=== PATIENT | male | born 1960 | race Caucasian/White ===

== ENCOUNTER 2016-11-04 08:35 | Emergency (ER) | payer BC ==
[2016-11-04 08:48] VITALS: BP 146/79
--- NOTE | 2016-11-04 09:54 | UC ---
Jeevan Hernandez SooYoung, scribed for [facility] on 11/04/16 at 0857 . Abdominal Pain Male HPI - HPI Summary HPI Summary: NOTE: Afebrile. Pulse 82. Pulse ox 95. 5 out of 10 LLQ abd discomfort. Non-drinker, former smoker. PSHx: 08/29/2012 Cholecystectomy. Visit hx otherwise noncontributory. Pt is taking Simvastatin, Ranitidine and Aspirin. IN ROOM NOTE: A 56 y/o M presents to [facility] with c/o abd pain onset 3 to 4 days ago. Non- radiating, dull pain. Denies fever, dysuria, hematuria, bowel changes, rectal bleeding. He notes the pain has worsened over the past few days but has not changed. Aggravating factor: full bladder, deep breaths. Alleviating factor: Sitting or laying position, urinating. Pt is able to sleep at night. He states it doesn't feel like his past UTIs. Pert PMHx: UTI, neg kidney stones, diverticulitis. Negative colonoscopy in the past few months. 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 He says he's eating normally. PCP is Dr. Dias. NURSE'S NOTE: pt c/o a tender area to lt lower abd/upper groin area. pt states the pain is worse with a full bladder. [ End ] - History of Current Complaint Chief Complaint: UCAbdominalPain Stated Complaint: ABD PAIN Hx Obtained From: Patient Onset/Duration: Lasting Days, Still Present Severity Currently: Moderate Pain Intensity: 5 Pain Scale Used: 0-10 Numeric Location: Discrete At: LLQ Radiates: No Character: Dull Aggravating Factor(s):: Deep Breaths Alleviating Factor(s): Position Associated Signs And Symptoms: Positive: Negative - Allergies/Home Medications Allergies/Adverse Reactions: Allergies Allergy/AdvReac Type Severity Reaction Status Date / Time Clindamycin Allergy Severe STOMACH Verified 08/21/16 20:15 PAIN PMH/Surg Hx/FS Hx/Imm Hx Previously Healthy: No - Pos: SLEEP APNEA, GERD, WPW Endocrine History Of: Reports: Dyslipidemia Denies: Diabetes, Thyroid Disease, Hyperthyroidism, Hypothyroidism Cardiovascular History Of: Reports: Cardiac Disorders - WPW, ablation 1999 Denies: Hypertension, Pacemaker/ICD, Myocardial Infarction, Congestive Heart Failure, Atrial Fibrillation, Deep Vein Thrombosis, Bleeding Disorders Respiratory History Of: Denies: COPD, Asthma, Bronchitis, Pneumonia, Pulmonary Embolism GI/ History Of: Reports: Gastroesophageal Reflux Denies: Ulcer, Gastrointestinal Bleed, Gall Bladder Disease, Kidney Stones, Diverticulitis, Renal Disease, Urosepsis Neurological History Of: Denies: TIA, CVA, Dementia, Seizures, Migraine Psychological History Of: Denies: Anxiety, Depression, Bipolar Disorder, Schizophrenia, Post Traumatic Stress Disorder Cancer History Of: Denies: Lung Cancer, Colorectal Cancer, Breast Cancer, Prostate Cancer, Cervical Cancer Other History Of: Negative For: HIV, Hepatitis B, Hepatitis C, Anticoagulant Therapy - Surgical History Surgical History: Yes Surgery Procedure, Year, and Place: TONSILECTOMY [place]. [address] [facility] [place]. RIGHT SHOULDER, 2013, [facility] [place]. L meniscus surgery - Family History Known Family History: Positive: Cardiac Disease, Hypertension - father, Other - pos: [place] sister Negative: Diabetes - Social History Occupation: Employed Full-time Lives: With Family Alcohol Use: None Substance Use Type: None Smoking Status (MU): Former Smoker Review of Systems Constitutional: Negative Gastrointestinal: Abdominal Pain All Other Systems Reviewed And Are Negative: Yes Physical Exam Triage Information Reviewed: Yes Appearance: Well-Appearing, No Pain Distress, Well-Nourished Vital Signs: Initial Vital Signs Temp 97.3 F 11/04/16 08:45 Pulse 82 11/04/16 08:45 Resp 18 11/04/16 08:45 BP 146/79 11/04/16 08:45 Pulse Ox 95 11/04/16 08:45 Vital Signs Reviewed: Yes Eyes: Positive: Conjunctiva Clear ENT: Positive: Hearing grossly normal, Pharynx normal, TMs normal. Negative: Muffled/hoarse voice Neck: Positive: Supple, No Lymphadenopathy Respiratory: Positive: Chest non-tender, Lungs clear, Normal breath sounds, No respiratory distress Cardiovascular: Positive: RRR, No Murmur Abdomen Description: Positive: No Organomegaly, Soft, Other: - NO TENDERNESS IN RUQ, REFERRED PAIN IN RLQ TO LLQ. SIGNIFICANT DISCOMFORT WITH PALPATATION AND PERCUSSION OF LLQ. NO EVIDENT HERNIA. NO TESTICULAR PAIN OR ABNORMALITY. FEMORAL PULSES WNL.. Negative: Peritoneal Signs Bowel Sounds: Positive: Present Musculoskeletal: Positive: Strength Intact, Other: - CORRALES Neurological: Positive: Alert Psychological: Positive: Age Appropriate Behavior Skin: Negative: rashes Abd Pain Male Course/Dx - Course Course Of Treatment: MDM: UA 1+ PROTEIN, NEGATIVE WBC, NEGATIVE NITRITE. Discussed with pt the possibility of diverticulitis and that 25% of these cases can have complications, and the importance of initial dx. Pt understands and agrees, has decided to drive rather than take ambulance to ED. Pt vital signs are stable. - Differential Dx/Clinical Impression Differential Diagnosis/HQI/PQRI: Other - abd pain unclear etiology, kidney stone , diverticulitis, cystitis, constipation. Provider Diagnoses: abd pain unclear etiology, possible diverticulitis. - Physician Notification/Consults Discussed Patient Care With: Gabino Jeffers, charge nurse in ED Time Discussed With Above Provider: 09:43 Instructed by Provider To: MD Will See In ED Discharge - Discharge Plan Condition: Stable Disposition: HOME Patient Education Materials: Diverticulitis (ED) Referrals: Leonid Dias MD [Primary Care Provider] - Additional Instructions: WE DISCUSSED: GO TO ED RIGHT NOW. YOU MAY HAVE DIVERTICULITIS. THEY CAN FURTHER EVALUATE YOUR CONDITION. The documentation as recorded by the Jeevan garcia SooYoung accurately reflects the service I personally performed and the decisions made by me, Ander Peñaloza MD.
== END 2016-11-04 09:58 | disposition home or self-care (01) ==
LOC: UCEAST 08:35
DX: R10.32 Left lower quadrant pain (principal); Z88.1 Allergy status to other antibiotic agents; Z90.49 Acquired absence of other specified parts of digestive tract; I45.6 Pre-excitation syndrome; Z87.891 Personal history of nicotine dependence
CPT/HCPCS: 81003; 99212; G0463

== ENCOUNTER 2016-11-04 10:12 | Emergency (ER) | payer BC ==
[2016-11-04] MEDS ORDERED: NS 0.9% 1000 ML* 1,000 ML IV ONE (11:38)
[2016-11-04 11:48] LABS: Hematocrit 52 % (42-52); Hemoglobin 17.2 g/dl (14.0-18.0); Mean Corpuscular HGB Conc 33 g/dl (31-36); Mean Corpuscular Hemoglobin 29 pg (27-31); Mean Corpuscular Volume 87 fL (80-94); Mean Platelet Volume 9 um3 (7.4-10.4); Red Blood Count 5.97 10^6/ul (4.0-5.4); Red Cell Distribution Width 15 % (10.5-15); White Blood Count 9.4 10^3/ul (3.5-10.8)
[2016-11-04 11:50] LABS: Urine Bilirubin Negative (Negative); Urine Glucose Negative (Negative); Urine Nitrite Negative (Negative)
[2016-11-04 11:59] LABS: BUN/Creatinine Ratio 15.3 (8-20); C Reactive Protein 72.94 mg/L (< 5.00); Calcium 9.7 mg/dL (8.6-10.3); EGFR African American 59.1 (>60); EGFR Non-African American 45.9 (>60); Globulin 3.5 g/dL (2-4); Potassium 4.2 mmol/L (3.5-5.0); Total Bilirubin 1.2 mg/dL (0.2-1.0); Total Protein 7.5 g/dL (6.4-8.9)
[2016-11-04] MEDS ORDERED: Iodixanol* (CONTRAST) 320 MG/ML 100 ML SDV IV ONE (13:51)
--- NOTE | 2016-11-04 14:42 | RAD ---
INDICATION: Abdominal pain LEFT lower quadrant for 3 days. COMPARISON: November 11, 2010 RIGHT upper quadrant ultrasound. TECHNIQUE: Multidetector CT images were obtained from the lung bases to the ischial tuberosities with 141 mL Visipaque 320 IV and oral contrast. Multiplanar reformation. REPORT: Unremarkable visualized inferior thorax. Post cholecystectomy. Negative for biliary dilatation. Unremarkable liver, pancreas, spleen. Negative for CT abnormality of the upper GI, small bowel, or appendix visualized ascending cephalad posterior to the cecum. Moderate colonic diverticulosis most confluent at the sigmoid colon. Inflamed diverticulum along the mesenteric margin of the proximal sigmoid colon with mild perienteric inflammatory change. Negative for perienteric abscess or free air. Negative for ascites. Negative for significant hernias. Normal adrenal glands. Symmetric nephrograms and pyelograms. 1.9 cm relative hypodense cortical lesion upper pole LEFT kidney is denser than typical for a simple renal cyst. Bilateral small foci of renal cortical scarring. Negative for obstructive uropathy. Unremarkable ureters. Largely decompressed urinary bladder. Coarse calcifications at the prostate. Symmetric seminal vesicles. Negative for lymphadenopathy. Mild calcific plaque of normal diameter abdominal aorta and iliac arteries. Physiologic distention of the IVC. Lumbar sacral spine degenerative spondylosis and facet joint osteoarthritis. Mild bilateral hip joint osteoarthritis. No suspicious osseous lesions evident. IMPRESSION: 1. Acute sigmoid diverticulitis without perienteric abscess or resulting bowel obstruction. Interval follow-up after therapy including screening for colon carcinoma if not performed within the routine screening interval suggested. 2. Incidental 1.9 cm cortical lesion at the upper pole of the LEFT kidney for which nonemergent ultrasound is suggested to differentiate between a solid lesion and a hyperdense cyst.
[2016-11-04] MEDS ORDERED: metroNIDAZOLE TAB* 250 MG PO ONE (14:57)
[2016-11-04] MEDS ORDERED: Ciprofloxacin TAB* 500 MG PO ONE (14:57)
--- NOTE | 2016-11-04 15:10 | ED ---
Kristin Hernandez Rebecca, scribed for Jay Jay Dubon MD on 11/04/16 at 1028 . Abdominal Pain/Male - HPI Summary HPI Summary: Pt is 56 y/o M referred by [facility] to r/o diverticulitis who presents to ED c/o abd pain. Pain began suddenly 4 days ago and has been intermittent since onset. Pain is currently 0/10 and at its worst, 5/10. Pain is discrete to the LLQ without radiation and characterized as sharp. Sx aggravated and alleviated by nothing. Denies N/V/D, constipation, fever, chills. Last Bm was this morning. No PMHx diverticulitis or diverticulosis. Last colonoscopy was 3 months ago. - History of Current Complaint Chief Complaint: EDAbdPain Stated Complaint: LOWER LT ABD PAIN Time Seen by Provider: 11/04/16 10:21 Hx Obtained From: Patient Onset/Duration: Sudden Onset, Lasting Days - 4 days ago, Still Present Timing: Intermittent Severity Initially: Moderate Severity Currently: None Pain Intensity: 0 Pain Scale Used: 0-10 Numeric Location: Discrete At: LLQ Radiates: No Character: Sharp Aggravating Factor(s): Nothing Alleviating Factor(s): Nothing Associated Signs And Symptoms: Positive: Negative. Negative: Fever, Constipation, Nausea, Vomiting, Diarrhea - Allergies/Home Medications Allergies/Adverse Reactions: Allergies Allergy/AdvReac Type Severity Reaction Status Date / Time Clindamycin Allergy Severe STOMACH Verified 11/04/16 10:16 PAIN PMH/Surg Hx/FS Hx/Imm Hx Endocrine/Hematology History: Denies: Hx Anticoagulant Therapy, Hx Diabetes, Hx Sickle Cell Disease, Hx Thyroid Disease Cardiovascular History: Reports: Other Cardiovascular Problems/Disorders - 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 Denies: Hx Angina, Hx Congestive Heart Failure, Hx Deep Vein Thrombosis, Hx Hypertension, Hx Myocardial Infarction, Hx Pacemaker/ICD, Hx Valvular Heart Disease Respiratory History: Reports: Hx Sleep Apnea - INST TO BRING C PAP MACHINE Denies: Hx Asthma, Hx Chronic Obstructive Pulmonary Disease (COPD), Hx Lung Cancer, Hx Pneumonia, Hx Pulmonary Embolism GI History: Denies: Hx Gall Bladder Disease, Hx Gastrointestinal Bleed, Hx Ulcer, Hx Urosepsis, Other GI Disorders History: Denies: Hx Kidney Stones, Hx Renal Disease Musculoskeletal History: Denies: Other Musculoskeletal History Sensory History: Reports: Hx Contacts or Glasses - GLASSES INST GIVEN Denies: Hx Hearing Aid Opthamlomology History: Reports: Hx Contacts or Glasses - GLASSES INST GIVEN Neurological History: Denies: Hx Dementia, Hx Migraine, Hx Seizures, Hx Transient Ischemic Attacks (TIA), Other Neuro Impairments/Disorders Psychiatric History: Denies: Hx Anxiety, Hx Depression, Hx Panic Disorder, Hx Schizophrenia, Hx Bipolar Disorder - Surgical History Surgery Procedure, Year, and Place: [place]SILECTOMY [place]. 2013 [facility] [place]. RIGHT SHOULDER, 2013, [facility]. L meniscus surgery Hx Anesthesia Reactions: No Infectious Disease History: No Infectious Disease History: Denies: History Other Infectious Disease, Traveled Outside the [place] in Last 30 Days - Family History Known Family History: Positive: Cardiac Disease, Hypertension - father, Other - pos: [place] sister Negative: Diabetes - Social History Alcohol Use: None Substance Use Type: Reports: None Smoking Status (MU): Former Smoker Review of Systems Negative: Fever Positive: Abdominal Pain, Other - Denies constipation. Negative: Vomiting, Diarrhea, Nausea All Other Systems Reviewed And Are Negative: Yes Physical Exam - Summary Physical Exam Summary: Obese male lying comfortably in stretcher in no distresss. Abd soft, distended, positive LLQ tenderness with no rebound or guarding Triage Information Reviewed: Yes Vital Signs On Initial Exam: Initial Vitals Temp Pulse Resp BP Pulse Ox 97.8 F 73 16 129/81 97 11/04/16 10:16 11/04/16 10:16 11/04/16 10:16 11/04/16 10:16 11/04/16 10:16 Vital Signs Reviewed: Yes Appearance: Positive: Well-Appearing, No Pain Distress, Obese Skin: Positive: Warm, Skin Color Reflects Adequate Perfusion, Dry Head/Face: Positive: Normal Head/Face Inspection Eyes: Positive: EOMI, MELIA ENT: Positive: Normal ENT inspection Neck: Positive: Supple, Nontender Respiratory/Lung Sounds: Positive: Clear to Auscultation, Breath Sounds Present Cardiovascular: Positive: RRR, Pulses are Symmetrical in both Upper and Lower Extremities Abdomen Description: Positive: Soft, Other: - No rebound. Negative: Nontender - Tenderness in the LLQ, Guarding Bowel Sounds: Positive: Present Musculoskeletal: Positive: Normal, Strength/ROM Intact Neurological: Positive: Normal, Sensory/Motor Intact, Alert, Oriented to Person Place, Time Psychiatric: Positive: Normal, Affect/Mood Appropriate Diagnostics - Vital Signs Vital Signs Temp Pulse Resp BP Pulse Ox 11/04/16 10:16 97.8 F 73 16 129/81 97 - Laboratory Lab Results: Lab Results 11/04/16 11/04/16 11/04/16 Range/Units 10:40 10:40 10:40 WBC 9.4 (3.5-10.8) 10^3/ul RBC 5.97 H (4.0-5.4) 10^6/ul Hgb 17.2 (14.0-18.0) g/dl Hct 52 (42-52) % MCV 87 (80-94) fL MCH 29 (27-31) pg MCHC 33 (31-36) g/dl RDW 15 (10.5-15) % Plt Count 211 (150-450) 10^3/ul MPV 9 (7.4-10.4) um3 Neut % (Auto) 65.3 (38-83) % Lymph % (Auto) 18.1 L (25-47) % Miller % (Auto) 10.8 H (1-9) % Eos % (Auto) 4.8 (0-6) % Baso % (Auto) 1.0 (0-2) % Absolute Neuts (auto) 6.1 (1.5-7.7) 10^3/ul Absolute Lymphs (auto) 1.7 (1.0-4.8) 10^3/ul Absolute Monos (auto) 1.0 H (0-0.8) 10^3/ul Absolute Eos (auto) 0.4 (0-0.6) 10^3/ul Absolute Basos (auto) 0.1 (0-0.2) 10^3/ul Absolute Nucleated RBC 0 10^3/ul Nucleated RBC % 0 Sodium 135 (133-145) mmol/L Potassium 4.2 (3.5-5.0) mmol/L Chloride 103 (101-111) mmol/L Carbon Dioxide 26 (22-32) mmol/L Anion Gap 6 (2-11) mmol/L BUN 24 (6-24) mg/dL Creatinine 1.57 H (0.67-1.17) mg/dL Est GFR ( Amer) 59.1 (>60) Est GFR (Non-Af Amer) 45.9 (>60) BUN/Creatinine Ratio 15.3 (8-20) Glucose 103 H (70-100) mg/dL Lactic Acid (0.5-2.0) mmol/L Calcium 9.7 (8.6-10.3) mg/dL Total Bilirubin 1.20 H (0.2-1.0) mg/dL AST 19 (13-39) U/L ALT 25 (7-52) U/L Alkaline Phosphatase 54 (34-104) U/L Troponin I 0.00 (<0.04) ng/mL C-Reactive Protein 72.94 H (< 5.00) mg/L Total Protein 7.5 (6.4-8.9) g/dL Albumin 4.0 (3.2-5.2) g/dL Globulin 3.5 (2-4) g/dL Albumin/Globulin Ratio 1.1 (1-3) Amylase 23 L (29-103) U/L Lipase 25 (11.0-82.0) U/L Urine Color Yellow Urine Appearance Clear Urine pH 5.0 (5-9) Ur Specific [place] 1.015 (1.010-1.030) Urine Protein Negative (Negative) Urine Ketones Negative (Negative) Urine Blood Negative (Negative) Urine Nitrate Negative (Negative) Urine Bilirubin Negative (Negative) Urine Urobilinogen Negative (Negative) Ur Leukocyte Esterase Negative (Negative) Urine Glucose Negative (Negative) 11/04/16 Range/Units 10:40 WBC (3.5-10.8) 10^3/ul RBC (4.0-5.4) 10^6/ul Hgb (14.0-18.0) g/dl Hct (42-52) % MCV (80-94) fL MCH (27-31) pg MCHC (31-36) g/dl RDW (10.5-15) % Plt Count (150-450) 10^3/ul MPV (7.4-10.4) um3 Neut % (Auto) (38-83) % Lymph % (Auto) (25-47) % Miller % (Auto) (1-9) % Eos % (Auto) (0-6) % Baso % (Auto) (0-2) % Absolute Neuts (auto) (1.5-7.7) 10^3/ul Absolute Lymphs (auto) (1.0-4.8) 10^3/ul Absolute Monos (auto) (0-0.8) 10^3/ul Absolute Eos (auto) (0-0.6) 10^3/ul Absolute Basos (auto) (0-0.2) 10^3/ul Absolute Nucleated RBC 10^3/ul Nucleated RBC % Sodium (133-145) mmol/L Potassium (3.5-5.0) mmol/L Chloride (101-111) mmol/L Carbon Dioxide (22-32) mmol/L Anion Gap (2-11) mmol/L BUN (6-24) mg/dL Creatinine (0.67-1.17) mg/dL Est GFR ( Amer) (>60) Est GFR (Non-Af Amer) (>60) BUN/Creatinine Ratio (8-20) Glucose (70-100) mg/dL Lactic Acid 0.8 (0.5-2.0) mmol/L Calcium (8.6-10.3) mg/dL Total Bilirubin (0.2-1.0) mg/dL AST (13-39) U/L ALT (7-52) U/L Alkaline Phosphatase (34-104) U/L Troponin I (<0.04) ng/mL C-Reactive Protein (< 5.00) mg/L Total Protein (6.4-8.9) g/dL Albumin (3.2-5.2) g/dL Globulin (2-4) g/dL Albumin/Globulin Ratio (1-3) Amylase (29-103) U/L Lipase (11.0-82.0) U/L Urine Color Urine Appearance Urine pH (5-9) Ur Specific [place] (1.010-1.030) Urine Protein (Negative) Urine Ketones (Negative) Urine Blood (Negative) Urine Nitrate (Negative) Urine Bilirubin (Negative) Urine Urobilinogen (Negative) Ur Leukocyte Esterase (Negative) Urine Glucose (Negative) Result Diagrams: 11/04/16 10:40 11/04/16 10:40 Lab Statement: Any lab studies that have been ordered have been reviewed, and results considered in the medical decision making process. - CT Abd/Pel CT CT Interpretation Completed By: Radiologist - 1. Acute sigmoid diverticulitis without perienteric abscess or resulting bowel obstruction. Interval follow-up after therapy including screening for colon carcinoma if not performed within the routine screening interval suggested. 2. Incidental 1.9 cm cortical lesion at the upper pole of the LEFT kidney for which nonemergent ultrasound is suggested to differentiate between a solid lesion and a hyperdense cyst. Abdominal Pain Fem Course/Dx - Course Assessment/Plan: Pt is 56 y/o M referred by [facility] to r/o diverticulitis who presents to ED c/o abd pain. Pain began suddenly 4 days ago and has been intermittent since onset. Pain is currently 0/10 and at its worst, 5/10. Pain is discrete to the LLQ without radiation and characterized as sharp. Sx aggravated and alleviated by nothing. Denies N/V/D, constipation, fever, chills. Last Bm was this morning. No PMHx diverticulitis or diverticulosis. Last colonoscopy was 3 months ago. Blood work within normal limits except for creatinine of 1.5, glucose of 103, CRP of 7294. Urinalysis within normal limits. Abd/Pel CT shows the pt has acute sigmoid diverticulitis without perienteric abscess and no bowel obstruction. An incidental finding of 1.9 cm lesion of the upper pole of the L kidney which needs a nonemergent US. In the ED course, pt was given IV fluids, Ciprofloxacin and Flagyl to treat diverticulitis. I disclosed the findings of CT and the incidental finding of the lesion in the kidney and the need to follow up with PCP. Pt understands and agrees. Pt did not require any pain meds. He is AxOx3 and hemodynamically stable. I discussed all the findings and test results with the patient. Patient was instructed to return to the emergency room immediately if any of the symptoms return or worsens. Plan of care was discussed with the patient and understands and agrees. All questions were answered at patient satisfaction. There were no further complaints or concerns. Lung exam before discharge: CTA B /L. Good air exchange. No wheezing or crackles heard. CVS: S1 and S2 present. No murmurs appreciated. Patient is alert and oriented x 3. Patient is hemodynamically stable. 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 ) The documentation as recorded by the Kristin garcia Rebecca accurately reflects the service I personally performed and the decisions made by Jagdish velasquez Walter, MD.
[2016-11-04 15:20] VITALS: BP 119/75
== END 2016-11-04 15:20 | disposition home or self-care (01) ==
LOC: ED 10:12
DX: K57.92 Diverticulitis of intestine, part unspecified, without perforation or abscess without bleeding (principal); K59.00 Constipation, unspecified; N28.9 Disorder of kidney and ureter, unspecified; R10.9 Unspecified abdominal pain; R10.32 Left lower quadrant pain
CPT/HCPCS: 36415; 74177; 80053; 81003; 82150; 83605; 83690; 84484; 85025; 86140; 99283; A9270-GY; Q9967

== ENCOUNTER 2017-10-19 17:36 | Emergency (ER) | payer MEDICAID ==
--- NOTE | 2017-10-19 19:26 | UC ---
Knee Pain HPI - HPI Summary HPI Summary: 57 yo WM s/p left knee replacement on 09/17/2017, s/p staple removal on 10/01/17 had some residual skin infection/cellulitis on left tibia after staple removal, was placed on Keflex x1 week by his orthopedist then on doxycycline by his PCP 8 days ago, still c/o draining from the healing wound. Sx improved but still c/ o left tibial pain and drainage. - History of Current Complaint Chief Complaint: UCLowerExtremity Stated Complaint: KNEE COMPLAINT Time Seen by Provider: 10/19/17 18:47 Hx Obtained From: Patient Hx From Patient Unobtainable Due To: Other Severity Initially: Moderate Severity Currently: Moderate Pain Intensity: 8 Character: Sharp, Dull, Aching, Throbbing Aggravating Factor(s): Weight Bearing Alleviating Factor(s): Rest - elevation - Allergies/Home Medications Allergies/Adverse Reactions: Allergies Allergy/AdvReac Type Severity Reaction Status Date / Time clindamycin Allergy Stomach Verified 10/19/17 18:19 Cramps Home Medications: Home Medications Aspirin 325 mg PO DAILY 10/19/17 [History Confirmed 10/19/17] DOXYcycline CAP(*) [DOXYcycline 100MG CAP(*)] 100 mg PO BID 10/19/17 [History Confirmed 10/19/17] Ibuprofen 800 mg PO Q6H PRN 10/19/17 [History Confirmed 10/19/17] oxyCODONE TAB* [Roxycodone TAB 5 mg*] 5 mg PO Q6H PRN 10/19/17 [History Confirmed 10/19/17] PMH/Surg Hx/FS Hx/Imm Hx - Additional Past Medical History Additional PMH: left knee replacement 09/17/2017 Other History Of: Negative For: HIV, Hepatitis B, Hepatitis C, Anticoagulant Therapy - Surgical History Surgical History: Yes Surgery Procedure, Year, and Place: 1969' TONSILECTOMY [place]. 2012 [facility]. RIGHT SHOULDER, 2013, [facility]. L meniscus surgery. L knee replacement - Family History Known Family History: Positive: Cardiac Disease, Hypertension - father, Other - pos: [place] sister Negative: Diabetes - Social History Alcohol Use: None Substance Use Type: None Smoking Status (MU): Former Smoker Review of Systems Constitutional: Negative Skin: Other - SEE HPI Eyes: Negative ENT: Negative Respiratory: Negative Cardiovascular: Negative Gastrointestinal: Negative Genitourinary: Negative Motor: Negative Neurovascular: Negative Musculoskeletal: Other: - LLE pain Neurological: Negative Psychological: Negative Is Patient Immunocompromised?: No All Other Systems Reviewed And Are Negative: Yes Physical Exam Triage Information Reviewed: Yes Appearance: No Pain Distress Vital Signs: Initial Vital Signs Temp 36.9 C 10/19/17 18:14 Pulse 96 10/19/17 18:14 Resp 16 10/19/17 18:14 BP 131/89 10/19/17 18:14 Pulse Ox 97 10/19/17 18:14 Eye Exam: Normal ENT Exam: Normal Dental Exam: Normal Neck exam: Normal Neck: Positive: 1 Respiratory Exam: Normal Cardiovascular Exam: Normal Abdominal Exam: Normal Musculoskeletal: Positive: Other: - midline post-surgical scar over left knee from lower thigh to mid tibia, C/D/I Neurological Exam: Normal Psychological Exam: Normal Skin: Positive: significant lesion(s) - left mid tibial open wound size 1x1 cm draining purulent d/c, very faint mild area of cellulitis surrounding wound, mild TTP Knee Pain Course/Dx - Course Course Of Treatment: XR of left knee and left tibia neg for hardware abnormalities, positive for soft-tissue edema c/w cellulitis on left tibia. Pt is already taking doxycycline since 10/11/17, and has f/u appt with his ortho on 10/23, so advised to get re-eval by his orthopedist. Rocephin 1g IM x1 administered in UC - Differential Dx/Diagnosis Provider Diagnoses: LLE wound infection. Wound check Discharge - Discharge Plan Condition: Stable Disposition: HOME Patient Education Materials: Cellulitis (ED) Referrals: Leonid Dias MD [Primary Care Provider] - Additional Instructions: follow up with your orthopedics doctor jerome.
--- NOTE | 2017-10-19 19:28 | RAD ---
INDICATION: Total knee replacement COMPARISON: October 09, 2015 TECHNIQUE: AP, lateral, sunrise views were obtained. FINDINGS: There is left knee arthroplasty. Both femoral and tibial components appear well seated. The knee articular is normally. There is no joint effusion. There is soft tissue edema IMPRESSION: LEFT KNEE ARTHROPLASTY. NO EVIDENCE OF HARDWARE FAILURE. SOFT TISSUE EDEMA.
--- NOTE | 2017-10-19 19:29 | RAD ---
INDICATION: Cellulitis COMPARISON: None TECHNIQUE: AP and lateral views were obtained. FINDINGS: There are no acute bony findings. There is left knee arthroplasty. There is evidence of hardware removal of the proximal tibia. There are soft tissue calcifications.. IMPRESSION: NO ACUTE BONY FINDINGS. LEFT KNEE ARTHROPLASTY. SOFT TISSUE EDEMA IS CONSISTENT WITH CELLULITIS.
[2017-10-19] MEDS ORDERED: cefTRIAXone VIAL(*) 1,000 MG VIAL IM ONE (20:01)
[2017-10-19] MEDS ORDERED: Lidocaine 1% MPF* 2 ML VIAL INJ ONE (20:04)
[2017-10-19 20:10] VITALS: BP 122/82
== END 2017-10-19 20:31 | disposition home or self-care (01) ==
LOC: UCEAST 17:36
DX: T81.4XXA Infection following a procedure, initial encounter (principal); L08.9 Local infection of the skin and subcutaneous tissue, unspecified; Z96.652 Presence of left artificial knee joint; Z88.1 Allergy status to other antibiotic agents; Z87.891 Personal history of nicotine dependence
CPT/HCPCS: 96372; 99212; G0463; J0696

== ENCOUNTER 2018-06-23 09:37 | Emergency (ER) | payer OTHER ==
[2018-06-23 10:07] VITALS: BP 127/60
--- NOTE | 2018-06-23 10:39 | UC ---
Knee Pain HPI - HPI Summary HPI Summary: Slipped and fell on L knee several hours ago, and flexed the knee as he fell. He took ibuprofen 800mg just before coming to . Had L knee replacement in August and is concerned that it was out of alignment. - History of Current Complaint Chief Complaint: UCLowerExtremity Stated Complaint: KNEE INJURY Time Seen by Provider: 06/23/18 09:59 Hx Obtained From: Patient Onset/Duration: Sudden Onset, Lasting Hours Severity Initially: Moderate Severity Currently: Moderate Pain Intensity: 4 Character: Dull Aggravating Factor(s): Movement, Weight Bearing Alleviating Factor(s): Rest, Position Associated Signs And Symptoms: Positive: Negative Able to Bear Weight: Yes - Risk Factors Septic Arthritis Risk Factor: Negative Gout Risk Factor: Negative - Allergies/Home Medications Allergies/Adverse Reactions: Allergies Allergy/AdvReac Type Severity Reaction Status Date / Time clindamycin Allergy Stomach Verified 06/23/18 10:07 Cramps Home Medications: Home Medications Testosterone [Androgel] 20.25 mg TD DAILY 06/23/18 [History Confirmed 06/23/18] PMH/Surg Hx/FS Hx/Imm Hx Previously Healthy: Yes Endocrine History: Dyslipidemia GI/ History: Gastroesophageal Reflux Other History Of: Negative For: HIV, Hepatitis B, Hepatitis C, Anticoagulant Therapy - Surgical History Surgical History: Yes Surgery Procedure, Year, and Place: [place] [address] [facility] [place] [facility] [place]iscus [place]. L knee replacement - Family History Known Family History: Positive: Cardiac Disease, Hypertension - father, Other - pos: [place] sister Negative: Diabetes - Social History Alcohol Use: None Substance Use Type: None Smoking Status (MU): Former Smoker Review of Systems Musculoskeletal: Arthralgia All Other Systems Reviewed And Are Negative: Yes Physical Exam - Summary Physical Exam Summary: Knee with minimal soft tissue swelling, no erythema, small knee effusion, varus/ valgus negative, ADT negative, no popliteal mass Triage Information Reviewed: Yes Appearance: Well-Appearing, No Pain Distress, Obese Vital Signs: Initial Vital Signs Temp 97.3 F 06/23/18 10:03 Pulse 61 06/23/18 10:03 Resp 16 06/23/18 10:03 BP 127/60 06/23/18 10:03 Pulse Ox 98 06/23/18 10:03 Vital Signs Reviewed: Yes Eyes: Positive: Conjunctiva Clear ENT: Positive: Hearing grossly normal Neck: Positive: Supple, Nontender Respiratory: Positive: Chest non-tender, Lungs clear, Normal breath sounds, No respiratory distress Cardiovascular: Positive: RRR, No Murmur, Pulses Normal, Brisk Capillary Refill Abdomen Description: Positive: Nontender Musculoskeletal: Positive: Strength Intact, ROM Intact, No Edema Knee Pain Course/Dx - Course Course Of Treatment: left knee xray was negative for fracture with presence of small knee effusion. Continue RICE and ibuprofen as needed, MICHAEL wrap on knee and range of motion as tolerated. F/u with PCP in 1 week. - Differential Dx/Diagnosis Provider Diagnoses: Knee sprain Discharge - Sign-Out/Discharge Documenting (check all that apply): Patient Departure All imaging exams completed and their final reports reviewed: Yes - Discharge Plan Condition: Stable Disposition: HOME Patient Education Materials: Ibuprofen (By mouth), Knee Sprain (ED) Referrals: Leonid Dias MD [Primary Care Provider] - - Billing Disposition and Condition Condition: STABLE Disposition: Home
--- NOTE | 2018-06-23 10:51 | RAD ---
INDICATION: Left knee injury. TECHNIQUE: 2 views of the left knee were obtained. FINDINGS: The patient is status post total left knee replacement surgery. The bones and prostheses are in normal alignment. There is a joint effusion present. No fracture is seen. IMPRESSION: 1. JOINT EFFUSION, NO FRACTURE IS SEEN. 2. STATUS POST TOTAL LEFT KNEE REPLACEMENT SURGERY.
== END 2018-06-23 11:05 | disposition home or self-care (01) ==
LOC: UCEAST 09:37
DX: S83.92XA Sprain of unspecified site of left knee, initial encounter (principal); Z96.652 Presence of left artificial knee joint; Z88.1 Allergy status to other antibiotic agents; Z87.891 Personal history of nicotine dependence; W01.0XXA Fall on same level from slipping, tripping and stumbling without subsequent striking against object, initial encounter; Y92.9 Unspecified place or not applicable
CPT/HCPCS: 99212; G0463

== ENCOUNTER 2018-09-18 21:36 | Emergency (ER) | payer BC, OTHER ==
--- NOTE | 2018-09-18 21:52 | UC ---
Respiratory Complaint HPI - HPI Summary HPI Summary: The patient is a 58-year-old male with the onset of fever chills cough nasal congestion and sore throat that started yesterday. States that he has burning pain in his chest when he coughs. He denies any shortness of breath. He has a history of bronchitis. Mild headache and myalgias. States his is currently being treated for bronchitis. - History of Current Complaint Stated Complaint: CHEST CONGESTION Time Seen by Provider: 09/18/18 21:44 Hx Obtained From: Patient Onset/Duration: Gradual Onset, Lasting Hours Timing: Constant Severity Initially: Mild Severity Currently: Moderate Pain Intensity: 8 Pain Scale Used: 0-10 Numeric Character: Cough: Productive Aggravating Factors: Deep Breaths Alleviating Factors: Nothing Associated Signs And Symptoms: Positive: Fever, Chills. Negative: Dyspnea, Pleuritic Chest Pain, Wheezing, Hemoptysis, Dizziness, Calf Pain, Calf Swelling , Edema, URI - Allergies/Home Medications Allergies/Adverse Reactions: Allergies Allergy/AdvReac Type Severity Reaction Status Date / Time clindamycin Allergy Stomach Verified 09/18/18 21:54 Cramps PMH/Surg Hx/FS Hx/Imm Hx Previously Healthy: Yes - mana Endocrine History: Dyslipidemia Respiratory History: Bronchitis, Pneumonia GI/ History: Gastroesophageal Reflux Other History Of: Negative For: HIV, Hepatitis B, Hepatitis C, Anticoagulant Therapy - Surgical History Surgical History: Yes Surgery Procedure, Year, and Place: [place]OMY [place]. [place] [facility] [facility] [place], [facility] [place] L meniscus surgery. L knee replacement - Family History Known Family History: Positive: Cardiac Disease, Hypertension - father, Other - pos: [place] sister Negative: Diabetes - Social History Alcohol Use: None Substance Use Type: None Smoking Status (MU): Former Smoker Review of Systems All Other Systems Reviewed And Are Negative: Yes Constitutional: Positive: Fever, Chills, Fatigue Skin: Positive: Negative Eyes: Positive: Negative ENT: Positive: Negative Respiratory: Positive: Cough Cardiovascular: Positive: Negative Gastrointestinal: Positive: Negative Genitourinary: Positive: Negative Motor: Positive: Negative Neurovascular: Positive: Negative Musculoskeletal: Positive: Negative Neurological: Positive: Negative Psychological: Positive: Negative Physical Exam Triage Information Reviewed: Yes Appearance: Well-Appearing, No Pain Distress Vital Signs Reviewed: Yes Eyes: Positive: Conjunctiva Clear ENT: Positive: Hearing grossly normal, Pharynx normal, Nasal congestion, Nasal drainage, Uvula midline. Negative: Tonsillar swelling, Tonsillar exudate, Trismus, Muffled voice, Hoarse voice, Sinus tenderness Dental: Negative: Abscess @ Neck: Positive: Supple, Nontender, No Lymphadenopathy Respiratory: Positive: Lungs clear, Normal breath sounds, No respiratory distress, No accessory muscle use, Other: - bronchospastic cough Cardiovascular: Positive: RRR, No Murmur Musculoskeletal: Positive: ROM Intact, No Edema Neurological: Positive: Alert Psychological Exam: Normal Skin Exam: Normal UC Diagnostic Evaluation - Laboratory O2 Sat by Pulse Oximetry: 95 - low normal/not hypoxic Diagnostic Studies Comment: influenza (-) Respiratory Course/Dx - Differential Dx/Diagnosis Provider Diagnosis: Bronchitis Discharge - Sign-Out/Discharge Documenting (check all that apply): Patient Departure All imaging exams completed and their final reports reviewed: No Studies - Discharge Plan Condition: Stable Disposition: HOME Prescriptions: Azithromycin TAB* [Zithromax TAB*] 250 mg PO DAILY #4 tab Patient Education Materials: Acute Bronchitis (ED) Forms: *Work Release Referrals: Leonid Dias MD [Primary Care Provider] - If Needed Additional Instructions: rest fluids tylenol or advil if needed robitussin or mucinex recheck in 48 hours if still febrile - Billing Disposition and Condition Condition: STABLE Disposition: Home
[2018-09-18 21:54] VITALS: BP 114/72
[2018-09-18] MEDS ORDERED: Ibuprofen TAB* 600 MG PO ONE (22:01)
[2018-09-18 22:24] LABS: Influenza A Molecular NEGATIVE (Negative); Influenza B Molecular NEGATIVE (Negative)
[2018-09-18] MEDS ORDERED: Azithromycin TAB* 250 MG PO ONE (22:26)
[2018-09-18] MEDS ORDERED: Azithromycin TAB* 250 MG ONE (22:33)
== END 2018-09-18 22:37 | disposition home or self-care (01) ==
LOC: UCEAST 21:36
DX: J40 Bronchitis, not specified as acute or chronic (principal); Z88.1 Allergy status to other antibiotic agents; Z87.891 Personal history of nicotine dependence
CPT/HCPCS: 99212; A9270-GY; G0463

== ENCOUNTER 2019-01-27 06:35 | Emergency (ER) | payer BC ==
--- NOTE | 2019-01-27 06:47 | ED ---
Abdominal Pain/Male - HPI Summary HPI Summary: Pt. is a 58 y.o male who presents to the ER for lower abd. pain that started yesterday. Pt. notes pain has increased through the night and presents for evaluation. No associated sxs are CP, SOB, V/D/C, dysuria, hematuria, fever, chills. Hx of high cholesterol. Hx of cholecystectomy. Pt. notes hx of diverticulitis a few years ago and pain is similar. Sxs are moderate in severity. No current modifying factors. Pain /. - History of Current Complaint Chief Complaint: EDAbdPain Stated Complaint: ABD PAIN PER PT Time Seen by Provider: 01/27/19 06:45 Hx Obtained From: Patient Pain Intensity: 10 - Allergies/Home Medications Allergies/Adverse Reactions: Allergies Allergy/AdvReac Type Severity Reaction Status Date / Time clindamycin Allergy Stomach Verified 01/27/19 06:45 Cramps PMH/Surg Hx/FS Hx/Imm Hx Previously Healthy: Yes Endocrine/Hematology History: Denies: Hx Anticoagulant Therapy, Hx Diabetes, Hx Sickle Cell Disease, Hx Thyroid Disease Cardiovascular History: Reports: Other Cardiovascular Problems/Disorders - 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 Denies: Hx Angina, Hx Congestive Heart Failure, Hx Deep Vein Thrombosis, Hx Hypertension, Hx Myocardial Infarction, Hx Pacemaker/ICD, Hx Valvular Heart Disease Respiratory History: Reports: Hx Sleep Apnea - INST TO BRING C PAP MACHINE Denies: Hx Asthma, Hx Chronic Obstructive Pulmonary Disease (COPD), Hx Lung Cancer, Hx Pneumonia, Hx Pulmonary Embolism GI History: Denies: Hx Gall Bladder Disease, Hx Gastrointestinal Bleed, Hx Ulcer, Hx Urosepsis, Other GI Disorders History: Denies: Hx Kidney Stones, Hx Renal Disease Musculoskeletal History: Denies: Other Musculoskeletal History Sensory History: Reports: Hx Contacts or Glasses - GLASSES INST GIVEN Denies: Hx Hearing Aid Opthamlomology History: Reports: Hx Contacts or Glasses - GLASSES INST GIVEN Neurological History: Denies: Hx Dementia, Hx Migraine, Hx Seizures, Hx Transient Ischemic Attacks (TIA), Other Neuro Impairments/Disorders Psychiatric History: Denies: Hx Anxiety, Hx Depression, Hx Panic Disorder, Hx Schizophrenia, Hx Bipolar Disorder - Surgical History Surgery Procedure, Year, and Place[place] [facility] [place] [facility] [place]. L knee replacement Hx Anesthesia Reactions: No Infectious Disease History: No Infectious Disease History: Denies: History Other Infectious Disease, Traveled Outside the [place] in Last 30 Days - Family History Known Family History: Positive: Cardiac Disease, Hypertension - father, Other - pos: [place] sister Negative: Diabetes - Social History Occupation: Employed Full-time Lives: With Family Alcohol Use: None Substance Use Type: Reports: None Smoking Status (MU): Former Smoker Review of Systems Constitutional: Negative Negative: Fever, Chills Cardiovascular: Negative Negative: Palpitations, Chest Pain Respiratory: Negative Negative: Shortness Of Breath, Cough Positive: Abdominal Pain. Negative: Vomiting, Diarrhea, Nausea Genitourinary: Negative Negative: dysuria, hematuria Neurological: Negative All Other Systems Reviewed And Are Negative: Yes Physical Exam Triage Information Reviewed: Yes Vital Signs On Initial Exam: Initial Vitals Temp Pulse Resp BP Pulse Ox 97.0 F 85 18 141/68 98 01/27/19 06:43 01/27/19 06:43 01/27/19 06:43 01/27/19 06:43 01/27/19 06:43 Vital Signs Reviewed: Yes Appearance: Positive: Pain Distress - Pt. sitting on bed in NAD. Appears uncomfortable but nontoxic. Skin: Positive: Warm, Dry Head/Face: Positive: Normal Head/Face Inspection Eyes: Positive: Normal, EOMI, MELIA Neck: Positive: Supple Respiratory/Lung Sounds: Positive: Clear to Auscultation, Breath Sounds Present Cardiovascular: Positive: Normal, RRR Abdomen Description: Positive: Other: - Morbidly obese. Abd. is soft with marked tenderness and guarding to the LLQ. No rigidity. Neurological: Positive: Normal, CN Intact II-III Psychiatric: Positive: Affect/Mood Appropriate Diagnostics - Vital Signs Vital Signs Temp Pulse Resp BP Pulse Ox 01/27/19 06:43 97.0 F 85 18 141/68 98 - Laboratory Result Diagrams: 01/27/19 07:39 01/27/19 07:10 Lab Statement: Any lab studies that have been ordered have been reviewed, and results considered in the medical decision making process. Abdominal Pain Male Course/Dx - Course Course Of Treatment: Pt. presenting with lower abd. pain. Afebrile with stable VS. Pt. rating pain 8/10. Suspcet diverticulitis based on exam and hx. Pt. started on IV fluids and pain medication. Pending labs and CT scan. ECG done at 0654 shows a sinus rhythm of 83 bpm, normal axis, no STEMI, similar to prior tracing. CT abd/pelvis per radiology: IMPRESSION: 1. CT findings are consistent with sigmoid diverticulitis without evidence of macro. perforation or drainable abscess. 2. Additional chronic, degenerative and iatrogenic findings described in the body the. report. On re-exam pt. resting comfortably. Results discussed. Tolerating PO fluids. Will tx with cipro and flagyl. Clear liquid diet. Discussed pain control and pt. would like to take tylenol or motrin. Close f.u with PCP. To return to ER for increased pain, vomiting, fever, or if concerned. Pt. understands and agrees with plan. - Diagnoses Differential Diagnosis/HQI/PQRI: Appendicitis, Bowel Obstruction, Constipation, Diverticulitis, Ischemic Bowel, Urinary Tract Infection Provider Diagnoses: Diverticulitis Discharge - Sign-Out/Discharge Documenting (check all that apply): Patient Departure Patient Received Moderate/Deep Sedation with Procedure: No - Discharge Plan Condition: Improved Disposition: HOME Prescriptions: Ciprofloxacin TAB* [Cipro 500 MG TAB*] 500 mg PO BID #20 tab metroNIDAZOLE [Flagyl 500 MG TAB] 500 mg PO TID #30 tab Patient Education Materials: Diverticulitis (ED) Referrals: Leonid Dias MD [Primary Care Provider] - Additional Instructions: Follow up with PCP in 2-3 days Take medication as directed Clear liquid diet x 3-5 days Tylenol or Motrin for pain as directed Return to ER for increased pain, vomiting, fever, or if concerned - Billing Disposition and Condition Condition: IMPROVED Disposition: Home
[2019-01-27] MEDS ORDERED: NS 0.9% 1000 ML** 1,000 ML IV ONE (06:52)
[2019-01-27] MEDS ORDERED: Ondansetron INJ* 2 MG/ML VIAL IV ONE (06:52)
[2019-01-27] MEDS ORDERED: Morphine 4 MG/ML VIAL (1 ml) 4 MG/ML VIAL IV ONE (06:52)
[2019-01-27 07:48] LABS: ABS Eosinophils 0.4 10^3/ul (0-0.6); ABS Lymphocytes 1.2 10^3/ul (1.0-4.8); ABS Monocytes 0.8 10^3/ul (0-0.8); ABS Neutrophils 7.2 10^3/ul (1.5-7.7); Eosinophil % 4.2 %; Hematocrit 48 % (42-52); Lymphocyte % 12.1 %; Mean Corpuscular HGB Conc 33 g/dL (31-36); Mean Corpuscular Hemoglobin 28 pg (27-31); Mean Corpuscular Volume 85 fL (80-94); Mean Platelet Volume 8.1 fL (7.4-10.4); Platelet Count 206 10^3/uL (150-450); Red Blood Count 5.63 10^6 /uL (4.18-5.48); Red Cell Distribution Width 15 % (10.5-15); White Blood Count 9.6 10^3/uL (3.5-10.8)
[2019-01-27 08:14] LABS: Calcium 9.8 mg/dL (8.6-10.3); Potassium 4.8 mmol/L (3.5-5.0); Total Bilirubin 1.1 mg/dL (0.2-1.0)
[2019-01-27 08:21] LABS: Albumin/Globulin Ratio 1.5 (1-3); BUN/Creatinine Ratio 17.6 (8-20); C Reactive Protein 19.81 mg/L (<8.01); EGFR Non-African American 51.2 (>60); Globulin 2.7 g/dL (2-4); Total Protein 6.7 g/dL (6.4-8.9)
[2019-01-27] MEDS ORDERED: Iodixanol* (CONTRAST) 320 MG/ML 100 ML SDV IV ONE (08:25)
[2019-01-27] MEDS ORDERED: Ciprofloxacin TAB* 500 MG PO ONE (09:18)
[2019-01-27] MEDS ORDERED: metroNIDAZOLE * 500 MG TABLET PO ONE (09:20)
[2019-01-27 09:21] LABS: Urine Appearance Clear; Urine Bilirubin Negative (Negative); Urine Blood Negative (Negative); Urine Color Yellow; Urine Glucose Negative (Negative); Urine Ketones Negative (Negative); Urine Nitrite Negative (Negative); Urine Protein Negative (Negative); Urine Specific Gravity 1.012 (1.010-1.030); Urine Urobilinogen Negative (Negative)
[2019-01-27 09:43] VITALS: BP 110/65
== END 2019-01-27 09:43 | disposition home or self-care (01) ==
LOC: ED 06:35
DX: K57.92 Diverticulitis of intestine, part unspecified, without perforation or abscess without bleeding (principal); Z87.891 Personal history of nicotine dependence
CPT/HCPCS: 36415; 74177; 80053; 81003; 83690; 84484; 85025; 86140; 93005; 96374; 96375; 99283; A9270-GY; J2270; J2405; Q9967

== ENCOUNTER 2019-01-30 18:01 | Emergency (ER) | payer BC ==
--- NOTE | 2019-01-30 18:08 | UC ---
Shoulder Pain HPI - HPI Summary HPI Summary: 58 yo right hand dominant male presents with LEFT shoulder pain. 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 Over the last 2 weeks has noticed increasing discomfort in his left shoulder with lifting and movement. Today he was using a hammer in his left hand and when he struck downwards - had increased pain in his shoulder. This concerned him. He has pain when lifting his arm above his chest. Denies numbness or tingling. No specific injury. No neck pain. - History of Current Complaint Stated Complaint: L SHOULDER PAIN Time Seen by Provider: 01/30/19 18:05 Hx Obtained From: Patient Severity Initially: Moderate Severity Currently: Severe Pain Intensity: 9 Pain Scale Used: 0-10 Numeric - Allergies/Home Medications Allergies/Adverse Reactions: Allergies Allergy/AdvReac Type Severity Reaction Status Date / Time clindamycin Allergy Stomach Verified 01/27/19 06:45 Cramps PMH/Surg Hx/FS Hx/Imm Hx - Additional Past Medical History Additional PMH: Diverticulosis Endocrine History: Dyslipidemia GI/ History: Gastroesophageal Reflux Other History Of: Negative For: HIV, Hepatitis B, Hepatitis C, Anticoagulant Therapy - Surgical History Surgical History: Yes Surgery Procedure, Year, and Place: [place]OMY [place]. 2013 [facility] [place], 2013, [facility] [place]. L meniscus surgery. L knee replacement - Family History Known Family History: Positive: Cardiac Disease, Hypertension - father, Other - pos: [place] sister Negative: Diabetes - Social History Occupation: Works From/At Home Lives: With Family Alcohol Use: None Substance Use Type: None Smoking Status (MU): Former Smoker Review of Systems All Other Systems Reviewed And Are Negative: Yes Constitutional: Positive: Negative Skin: Positive: Negative Respiratory: Positive: Negative Cardiovascular: Positive: Negative Neurovascular: Positive: Negative Musculoskeletal: Positive: Other: - Left shoulder pain Neurological: Positive: Negative Psychological: Positive: Negative Physical Exam - Summary Physical Exam Summary: GENERAL: NAD. WDWN. No pain distress. SKIN: No rashes, sores, lesions, or open wounds. CHEST: No accessory muscle use. Breathing comfortably and in no distress. CV: Pulses intact radial and ulnar. Cap refill <2seconds MSK: LEFT SHOULDER: Flexion to 90deg before pain stops him. Passive ROM to ~ 120deg before pain. Strength 5/5. No edema or obvious bony deformities. Positive empty can, neer, and hawkin's test. NEURO: Alert. Sensations intact C4-T1 B/L UEs PSYCH: Age appropriate behavior. Triage Information Reviewed: Yes Vital Signs: Vital Signs: Temp Pulse Resp BP Pulse Ox 98.9 F 91 18 118/58 96 01/30/19 18:06 01/30/19 18:06 01/30/19 18:06 01/30/19 18:06 01/30/19 18:06 Vital Signs Reviewed: Yes Shoulder Course/Dx - Course Course Of Treatment: XR: No radiologist reading after 1800, therefore wet read by myself is negative for fracture, but does show some calcifications. Suspect tendinitis vs RTC injury. Advised to take tylenol/ibuprofen as directed and to rest his shoulder. Will refer him to Orthopedics for further evaluation and refer him to Physical therapy. - Differential Dx/Diagnosis Provider Diagnosis: Calcific tendinitis Discharge - Sign-Out/Discharge Documenting (check all that apply): Patient Departure All imaging exams completed and their final reports reviewed: No - Discharge Plan Condition: Stable Disposition: HOME Patient Education Materials: Calcific Tendinitis (ED), Shoulder Pain (ED) Referrals: Leonid Dias MD [Primary Care Provider] - Hesham Peters MD [Medical Doctor] - As Soon As Possible Additional Instructions: If you develop a fever, shortness of breath, chest pain, new or worsening symptoms - please call your PCP or go to the ED immediately. 1) Rest and apply ice to your shoulder to decrease pain. May take tylenol or ibuprofen as directed for discomfort. 2) Please call Orthopedics at the number below for further evaluation of your shoulder pain 3) Please call Physical Therapy to schedule an appointment for further evaluation and treatment of your shoulder pain - Billing Disposition and Condition Condition: STABLE Disposition: Home
[2019-01-30 18:12] VITALS: BP 118/58
--- NOTE | 2019-01-31 10:13 | UC ---
- Progress Note Progress Note: IMPRESSION: FINDINGS MOST CONSISTENT WITH CALCIFIC TENDINITIS. No change in plan of care Course/Dx - Diagnoses Provider Diagnoses: Calcific tendinitis Discharge - Sign-Out/Discharge Documenting (check all that apply): Post-Discharge Follow Up All imaging exams completed and their final reports reviewed: Yes - Discharge Plan Condition: Stable Disposition: HOME Patient Education Materials: Calcific Tendinitis (ED), Shoulder Pain (ED) Referrals: Hesham Peters MD [Medical Doctor] - As Soon As Possible Leonid Dias MD [Primary Care Provider] - Additional Instructions: If you develop a fever, shortness of breath, chest pain, new or worsening symptoms - please call your PCP or go to the ED immediately. 1) Rest and apply ice to your shoulder to decrease pain. May take tylenol or ibuprofen as directed for discomfort. 2) Please call Orthopedics at the number below for further evaluation of your shoulder pain 3) Please call Physical Therapy to schedule an appointment for further evaluation and treatment of your shoulder pain - Billing Disposition and Condition Condition: STABLE Disposition: Home
== END 2019-01-30 18:40 | disposition home or self-care (01) ==
LOC: UCEAST 18:01
DX: M75.32 Calcific tendinitis of left shoulder (principal); E78.5 Hyperlipidemia, unspecified; K21.9 Gastro-esophageal reflux disease without esophagitis; Z87.891 Personal history of nicotine dependence
CPT/HCPCS: 99212; G0463

== ENCOUNTER 2019-08-03 15:46 | Emergency (ER) | payer BC ==
[2019-08-03 16:23] VITALS: BP 120/77
--- NOTE | 2019-08-03 16:27 | UC ---
Throat Pain/Nasal Diogo HPI - HPI Summary HPI Summary: sore thoat and laryngitis for 2 weeks no fever--here today just because it has been going on for so long - History of Current Complaint Chief Complaint: UCRespiratory Stated Complaint: SORE THROAT Time Seen by Provider: 08/03/19 16:26 Hx Obtained From: Patient Onset/Duration: Gradual Onset, Lasting Weeks - 2, Still Present Pain Intensity: 5 Pain Scale Used: 0-10 Numeric Cough: None Associated Signs & Symptoms: Positive: Negative - Allergies/Home Medications Allergies/Adverse Reactions: Allergies Allergy/AdvReac Type Severity Reaction Status Date / Time clindamycin Allergy Stomach Verified 08/03/19 16:23 Cramps PMH/Surg Hx/FS Hx/Imm Hx Previously Healthy: No Endocrine History: Dyslipidemia GI/ History: Gastroesophageal Reflux Other History Of: Negative For: HIV, Hepatitis B, Hepatitis C, Anticoagulant Therapy - Surgical History Surgical History: Yes Surgery Procedure, Year, and Place: [place]OMY [place]. [facility]. RIGHT SHOULDER, 2013, [facility]. L meniscus surgery. L knee replacement - Family History Known Family History: Positive: Cardiac Disease, Hypertension - father, Other - pos: [place] sister Negative: Diabetes - Social History Occupation: Employed Full-time Lives: With Family Alcohol Use: None Substance Use Type: None Smoking Status (MU): Former Smoker Review of Systems All Other Systems Reviewed And Are Negative: Yes Constitutional: Positive: Negative Skin: Positive: Negative Eyes: Positive: Negative ENT: Positive: Sore Throat Respiratory: Positive: Negative Cardiovascular: Positive: Negative Gastrointestinal: Positive: Negative Genitourinary: Positive: Negative Motor: Positive: Negative Neurovascular: Positive: Negative Musculoskeletal: Positive: Negative Neurological: Positive: Negative Psychological: Positive: Negative Is Patient Immunocompromised?: No Physical Exam Triage Information Reviewed: Yes Appearance: Well-Appearing, No Pain Distress, Well-Nourished Vital Signs: Initial Vital Signs Temp 98.9 F 08/03/19 16:19 Pulse 78 08/03/19 16:19 Resp 18 08/03/19 16:19 BP 120/77 08/03/19 16:19 Pulse Ox 99 08/03/19 16:19 Vital Signs Reviewed: Yes Eye Exam: Normal Eyes: Positive: Conjunctiva Clear ENT Exam: Normal ENT: Positive: Normal ENT inspection, Hearing grossly normal, Pharynx normal, TMs normal, Uvula midline. Negative: Nasal congestion, Tonsillar swelling, Tonsillar exudate, Trismus, Muffled voice, Hoarse voice, Dental tenderness, Sinus tenderness Neck exam: Normal Neck: Positive: Supple, Nontender, No Lymphadenopathy Respiratory Exam: Normal Respiratory: Positive: Chest non-tender, Lungs clear, Normal breath sounds, No respiratory distress, No accessory muscle use Cardiovascular Exam: Normal Cardiovascular: Positive: RRR, No Murmur, Pulses Normal, Brisk Capillary Refill Musculoskeletal Exam: Normal Musculoskeletal: Positive: Strength Intact, ROM Intact, No Edema Neurological Exam: Normal Neurological: Positive: Alert, Muscle Tone Normal Psychological Exam: Normal Skin Exam: Normal Diagnostics - Laboratory Lab Results: RST - Throat Pain/Nasal Course/Dx - Course Course Of Treatment: increase fluids, Tylenol, ibuprofen otc medications for comfort follow with pcp rpn - Differential Dx/Diagnosis Provider Diagnosis: Laryngitis Discharge ED - Sign-Out/Discharge Documenting (check all that apply): Patient Departure All imaging exams completed and their final reports reviewed: No Studies - Discharge Plan Condition: Stable Disposition: HOME Patient Education Materials: Laryngitis (ED), Viral Syndrome (ED) Referrals: Leonid Dias MD [Primary Care Provider] - If Needed - Billing Disposition and Condition Condition: STABLE Disposition: Home
== END 2019-08-03 16:50 | disposition home or self-care (01) ==
LOC: UCEAST 15:46
DX: J04.0 Acute laryngitis (principal); Z88.1 Allergy status to other antibiotic agents; Z87.891 Personal history of nicotine dependence
CPT/HCPCS: 87651; 99211; G0463